=== PATIENT | female | born 1975 | race Hispanic/Latino ===

== ENCOUNTER 2018-06-04 10:43 | Emergency (ER) | payer OTHER ==
[~2018-06-04] VITALS: Ht 157.5 cm; Wt 88.9 kg
[2018-06-04 11:34] VITALS: BP 122/78
== END 2018-06-04 11:35 | disposition home or self-care (01) ==
LOC: FSED 10:43
DX: J20.9 Acute bronchitis, unspecified (principal); B34.9 Viral infection, unspecified
CPT/HCPCS: 83518; 87400; 99282